=== PATIENT | male | born 1975 | race American Indian/Alaskan Native ===

== ENCOUNTER 2016-11-16 09:31 | Outpatient (CLI) | payer OTHER ==
--- NOTE | 2016-11-16 10:20 | XRay Report ---
AP AND LATERAL LUMBOSACRAL SPINE: History: Back pain. The vertebral bodies are well mineralized and normal in alignment and vertebral height with well preserved interspace distances. The visualized portions of the posterior elements are normal. IMPRESSION: Normal study.
== END 2016-11-16 09:32 | disposition home or self-care (01) ==
LOC: SPVIMAG 09:31
DX: M54.5 Low back pain (principal)
CPT/HCPCS: 72100